=== PATIENT | male | born 1980 | race African-American/Black ===

== ENCOUNTER 2018-04-28 10:59 | Emergency (ER) | payer OTHER ==
[~2018-04-28] VITALS: Ht 182.9 cm; Wt 133.8 kg
--- NOTE | ~2018-04-28 | EKG ---
[place] [address] [employer] [place] [address] ELECTROCARDIOGRAM REPORT Name: RADU SANTIAGO Room #: DEP ANDREWS Espinoza#: [id number] Admission: 04/28/18 Attend Phys: Discharge: 04/28/18 Date of : 80 Report #: [id number] THIS REPORT FOR: //name// [facility] ED Test Date: 2018-04-28 Test Time: 11:06:59 Pat Name: RADU SANTIAGO Department: Room: Gender: M [employer] Advisor: : [id number] Requested By: Shu Gillespie Order Number: [id number] MD: Wild Medina Measurements Intervals [place] Rate: 80 P: 66 CT: 143 QRS: -31 QRSD: 98 T: 4 QT: 379 QTc: 438 Interpretive Statements Sinus rhythm Probable left atrial enlargement Inferior infarct, old No previous ECG available for comparison Electronically Signed On 04-28-2018 17:47:44 CDT by Wild Medina [email or web address] <ELECTRONICALLY SIGNED> By: Wild Medina MD 04/28/18 1747 [id number] 1106 MD NADINE Pugh
[2018-04-28 11:24] LABS: URINE BILIRUBIN NEGATIVE (Negative); URINE BLOOD NEGATIVE (Negative); URINE CLARITY CLEAR; URINE COLOR YELLOW; URINE GLUCOSE-RANDOM* NEGATIVE (Negative); URINE KETONES NEGATIVE (Negative); URINE LEUKOCYTES-REFLEX NEGATIVE (Negative); URINE NITRITE-REFLEX NEGATIVE (Negative); URINE PROTEIN (DIPSTICK) NEGATIVE (Negative); URINE SPECIFIC GRAVITY <= 1.005 (1.005-1.035); URINE UROBILINOGEN 0.2 E.U./dl (0.2-1.0)
[2018-04-28 11:26] LABS: ABSOLUTE NEUTROPHILS 6.1 thou/uL (1.4-8.2); BASOPHILS 0.3 % (0.0-2.0); EOSINOPHILS 0.3 % (0.0-3.0); HEMATOCRIT 47.5 % (42.0-52.0); HEMOGLOBIN 15.9 gm/dL (14.0-18.0); LYMPHOCYTES 11.1 % (24.0-44.0); MCH 29.2 pg (26.0-34.0); MCHC 33.5 g/dL (28.0-37.0); MCV 87.1 fL (80.0-100.0); MONOCYTES 2.2 % (1.0-8.0); PLATELET COUNT 310 thou/uL (150-400); POLYS 86.1 % (36.0-66.0); RBC 5.45 mil/uL (4.50-6.00); RDW 13.2 % (10.5-14.5); WBC 7.1 thou/uL (4.0-11.0)
[2018-04-28 11:38] LABS: ANION GAP 4 mmol/L (7-16); CHLORIDE 98 mmol/L (98-107); CO2 29 mmol/L (21-32); POTASSIUM 3.6 mmol/L (3.5-5.1); SODIUM 131 mmol/L (136-145)
[2018-04-28 11:39] LABS: BUN 13 mg/dL (7-18); CREATININE 1.4 mg/dL (0.7-1.3); GLUCOSE 125 mg/dL (74-106)
[2018-04-28 11:41] LABS: ALBUMIN 3.5 g/dL (3.4-5.0); CALCIUM 9.6 mg/dL (8.5-10.1); SGOT 34 U/L (15-37); SGPT 41 U/L (30-65); TOTAL BILIRUBIN 0.4 mg/dL (<0.1-1.0); TOTAL PROTEIN 8.7 g/dL (6.4-8.2); TROPONIN-I <0.06 ng/mL (<0.06)
[2018-04-28] MEDS ORDERED: LISINOPRIL20 MG PO (11:41)
[2018-04-28] MEDS ORDERED: PREDNISONE 20 M20 MG PO (11:42)
[2018-04-28] MEDS ORDERED: SINGULAIR 10 MG10 M1 PO (11:42)
[2018-04-28] MEDS ORDERED: CIPRO250 M2 PO (11:43)
[2018-04-28 13:54] VITALS: BP 145/90
== END 2018-04-28 13:54 | disposition home or self-care (01) ==
LOC: ER 10:59
PROVIDERS: Nurse Practitioner Family
DX: R42 Dizziness and giddiness (principal); T36.8X5A Adverse effect of other systemic antibiotics, initial encounter; Y92.89 Other specified places as the place of occurrence of the external cause; I10 Essential (primary) hypertension; E87.1 Hypo-osmolality and hyponatremia; Z88.2 Allergy status to sulfonamides